=== PATIENT | female | born 1990 | race Caucasian/White ===

== ENCOUNTER 2016-12-06 03:54 | Emergency (ER) | payer SELFPAY ==
[2016-12-06 04:37] VITALS: BP 110/57; RESP 20; O2SAT 98
--- NOTE | 2016-12-06 05:29 | ED PDOC ---
HPI: Fever Fever Onset Was: 12/05/16 What Antipyretic Given Prior To Arrival: Unknown Recent Sick Contacts: No Have you had recent travel within the past 21 days to any of the following countries: [place], [place], [place] or [place]?: No Additional Comments: Pt reports bodyaches, fever, sore throat, headache and dry cough. Pt states she also had stomach ache. No medications for fever [employer]. Past Medical History Reviewed: Historical Data, Nursing Documentation, Vital Signs Vital Signs: Last Vital Signs Temp 102.3 F H 12/06/16 04:29 Pulse 110 H 12/06/16 04:29 Resp 20 12/06/16 04:29 BP 110/57 L 12/06/16 04:29 Pulse Ox 98 12/06/16 04:29 - Medical History PMH: No Chronic Diseases - Surgical History Surgical History: No Surg Hx - Family History Family History: States: Unknown Family Hx - Living Arrangements Living Arrangements: With Family - Social History Current smoker - smoking cessation education provided: No - Immunization History Hx Tetanus Toxoid Vaccination: No Hx Influenza Vaccination: No Hx Pneumococcal Vaccination: No - Home Medications Home Medications: Ambulatory Orders Medication Instructions Recorded Prednisone 50 mg PO DAILY #5 tab 10/06/14 Aspirin/Acetaminophen/Caffeine 1 each PO Q6H PRN #20 tablet 12/10/15 [Excedrin Migraine Caplet] Cyclobenzaprine [Cyclobenzaprine 10 mg PO Q8H #20 tab 12/10/15 HCl] Ibuprofen 600 mg PO Q6H PRN #20 tab 12/10/15 Nitrofurantoin Macrocrystals 100 mg PO BID #14 cap 01/15/16 [Macrobid] - Allergies Allergies/Adverse Reactions: Allergies Allergy/AdvReac Type Severity Reaction Status Date / Time No Known Allergies Allergy Verified 12/06/16 04:31 Review of Systems ROS Statement: Except As Marked, All Systems Reviewed And Found Negative Constitutional: Positive for: Fever, Malaise ENT: Positive for: Throat Pain Respiratory: Positive for: Cough Physical Exam - Reviewed Nursing Documentation Reviewed: Yes Vital Signs Reviewed: Yes - Physical Exam Appears: Positive for: Well, Non-toxic, No Acute Distress Head Exam: Positive for: ATRAUMATIC, NORMAL INSPECTION, NORMOCEPHALIC Skin: Positive for: Normal Color, Warm, DRY Eye Exam: Positive for: Normal appearance ENT: Positive for: Normal ENT Inspection, Pharyngeal Erythema Neck: Positive for: Normal, Painless ROM Cardiovascular/Chest: Positive for: Regular Rate, Rhythm Respiratory: Positive for: CNT, Normal Breath Sounds Gastrointestinal/Abdominal: Positive for: Normal Exam, Bowel Sounds, Soft Back: Positive for: Normal Inspection Extremity: Positive for: Normal ROM Neurologic/Psych: Positive for: Alert, Oriented - ECG O2 Sat by Pulse Oximetry: 98 Medical Decision Making Medical Decision Making: Endorsed pending influenza, strep and urine. Disposition - Clinical Impression Clinical Impression: Fever - Patient ED Disposition Is Patient to be Admitted: Transfer of Care - Disposition Disposition: Transfer of Care Disposition Time: 05:30 Condition: STABLE
[2016-12-06] MEDS ORDERED: Sodium Chloride 0.9% 1,000 ML IV STA (05:40)
--- NOTE | 2016-12-06 06:12 | ED PDOC ---
- Laboratory Results Result Diagrams: 12/06/16 07:50 12/06/16 07:50 - ECG O2 Sat by Pulse Oximetry: 98 (RA) Pulse Ox Interpretation: Normal Medical Decision Making Medical Decision Making: Receiving Sign Out: Patient signed out to me by VIRGIE Torres pending labs and re-evaluation. Scribe Attestation: Documented by Elodia Zhang acting as a scribe for Renan Wiley MD. Provider Attestation: All medical record entries made by the Scribe were at my direction and personally dictated by me. I have reviewed the chart and agree that the record accurately reflects my personal performance of the history, physical exam, medical decision making, and the department course for this patient. I have also personally directed, reviewed, and agree with the discharge instructions and disposition. Disposition - Clinical Impression Clinical Impression: Fever, UTI (urinary tract infection), URI (upper respiratory infection) - POA Present On Arrival: None - Disposition Referrals: [facility] [Outside] Disposition: Transfer of Care Disposition Time: 07:00 Condition: FAIR Additional Instructions: Follow up with your PCP in 2-3 days. Prescriptions: Nitrofurantoin Macrocrystals [Macrobid] 100 mg PO BID #14 cap Instructions: Urinary Tract Infection in Women (ED), Upper Respiratory Infection (ED) Patient Signed Over To: Jerome Bush Handoff Comments: labs and final dispo Progress Note - Review of Symptoms Events since last encounter: Time: 0638 Negative for Strep, Influenza Time: 0700 Pt to be signed out to Dr. Bush pending labs and final disposition.
[2016-12-06 06:40] VITALS: PULSE 99; TEMP 99.5
--- NOTE | 2016-12-06 07:12 | ED PDOC ---
- Laboratory Results Result Diagrams: 12/06/16 07:50 12/06/16 07:50 - ECG O2 Sat by Pulse Oximetry: 98 (RA) Pulse Ox Interpretation: Normal - Progress Re-evaluation Time: :02 Condition: Re-examined, Improved Medical Decision Making Medical Decision Making: Time: 7:00 --Patient is pending for blood work results, reassessment, and final disposition. Disposition Doctor Will See Patient In The: Office Counseled Patient/Family Regarding: Studies Performed, Diagnosis, Need For Followup - Clinical Impression Clinical Impression: Fever, UTI (urinary tract infection), Upper respiratory tract infection - POA Present On Arrival: None - Disposition Referrals: [facility] [Outside] Disposition: Routine/Home Disposition Time: 09:02 Condition: GOOD Additional Instructions: Follow up with your PCP in 2-3 days. Prescriptions: Nitrofurantoin Macrocrystals [Macrobid] 100 mg PO BID #14 cap Instructions: Urinary Tract Infection in Women (ED), Upper Respiratory Infection (ED)
[2016-12-06 08:04] LABS: HEMATOCRIT 34.8 % (34.0-47.0); MEAN CELL VOLUME 90.1 fl (81.0-99.0); MEAN CORPUSCULAR HEMOGLOBIN 30.5 pg (27.0-31.0); MEAN CORPUSCULAR HGB CONC 33.8 g/dL (33.0-37.0)
[2016-12-06 08:19] LABS: ALB/GLOB RATIO 1.1 (1.0-2.1); ALKALINE PHOSPHATASE 68 U/L (38-126); ALT/SGPT 35 U/L (9-52); AST/SGOT 27 U/L (14-36); BILIRUBIN,TOTAL 0.3 mg/dl (0.2-1.3); BLOOD UREA NITROGEN 10 mg/dl (7-17); CALCIUM 8.6 mg/dL (8.4-10.2); CARBON DIOXIDE 19 mmol/L (22-30); CHLORIDE 108 mmol/L (98-107); GFR AFRICAN-AMERICAN > 60; GLUCOSE,RANDOM 136 mg/dL (65-105); POTASSIUM 3.8 MMOL/L (3.6-5.0); SODIUM 140 mmol/l (132-148)
[2016-12-06 08:26] LABS: RBC URINE < 1 /hpf (0-3); URINE BACTERIA RARE (<OCC); URINE BILIRUBIN NEGATIVE (NEGATIVE); URINE BLOOD MODERATE (NEGATIVE); URINE COLOR STRAW (YELLOW); URINE GLUCOSE (UA) NEG (Normal); URINE KETONE TRACE mg/dL (NEGATIVE); URINE LEUKOCYTE ESTERASE MOD Leu/uL (Negative); URINE PROTEIN NEGATIVE (NEGATIVE); URINE UROBILINOGEN 0.2-1.0 mg/dL (0.2-1.0); WBC URINE 2 /hpf (0-5)
== END 2016-12-06 09:17 | disposition home or self-care (01) ==
LOC: H.ER 03:54
DX: N39.0 Urinary tract infection, site not specified (principal); J02.9 Acute pharyngitis, unspecified; R51 Headache; Z79.82 Long term (current) use of aspirin; J06.9 Acute upper respiratory infection, unspecified; R05 Cough
CPT/HCPCS: 80053; 81003; 81025; 85027; 87070; 87086; 87430; 87804; 99283; J7040

== ENCOUNTER 2017-05-07 18:23 | Emergency (ER) | payer OTHER ==
[2017-05-07 18:56] VITALS: RESP 16; TEMP 98.6
[2017-05-07] MEDS ORDERED: Sodium Chloride 0.9% 1,000 ML IV STA (19:28)
[2017-05-07] MEDS ORDERED: Iohexol 300 100 ML IJ ONE (20:09)
[2017-05-07] MEDS ORDERED: Sodium Chloride 0.9% 50 ML IV ONE (20:09)
--- NOTE | 2017-05-07 20:17 | ED PDOC ---
HPI: Abdomen Time Seen by Provider: 05/07/17 19:09 Chief Complaint (Nursing): Abdominal Pain Chief Complaint (Provider): Abdominal Pain History Per: Patient History/Exam Limitations: no limitations Outside of [place] travel?: No Current Symptoms Are (Timing): Still Present Additional Complaint(s): Cynthia Vargas, a 26 year old female, presents to the ED complaining of 3 days of constant abdominal pain. The patient states that she was sent to the ED from urgent care for further evaluation. Patient has a subjective fever. She reports that she has not taking any medication for pain. The patient she also has noted some intermittent dysuria. Denies hematuria, nausea, vomiting and diarrhea. Past Medical History Reviewed: Historical Data, Nursing Documentation, Vital Signs Vital Signs: Last Vital Signs Temp 98.6 F 05/07/17 18:53 Pulse 70 05/07/17 23:15 Resp 16 05/07/17 23:15 BP 116/74 05/07/17 23:15 Pulse Ox 100 05/07/17 23:15 - Medical History PMH: No Chronic Diseases - Surgical History Other surgeries: Cosmetic Surgeries - Family History Family History: States: Unknown Family Hx - Immunization History Hx Tetanus Toxoid Vaccination: No Hx Influenza Vaccination: No Hx Pneumococcal Vaccination: No - Home Medications Home Medications: Ambulatory Orders Medication Instructions Recorded Prednisone 50 mg PO DAILY #5 tab 10/06/14 Aspirin/Acetaminophen/Caffeine 1 each PO Q6H PRN #20 tablet 12/10/15 [Excedrin Migraine Caplet] Cyclobenzaprine [Cyclobenzaprine 10 mg PO Q8H #20 tab 12/10/15 HCl] Ibuprofen 600 mg PO Q6H PRN #20 tab 12/10/15 Nitrofurantoin Macrocrystals 100 mg PO BID #14 cap 01/15/16 [Macrobid] Nitrofurantoin Macrocrystals 100 mg PO BID #14 cap 12/06/16 [Macrobid] Ibuprofen [Motrin] 600 mg PO Q6H PRN #20 tab 05/07/17 Nitrofurantoin Macrocrystals 100 mg PO BID #14 cap 05/07/17 [Macrobid] - Allergies Allergies/Adverse Reactions: Allergies Allergy/AdvReac Type Severity Reaction Status Date / Time No Known Allergies Allergy Verified 05/07/17 19:30 Review of Systems ROS Statement: Except As Marked, All Systems Reviewed And Found Negative Constitutional: Positive for: Fever (subjective fever) Gastrointestinal: Positive for: Abdominal Pain, Diarrhea. Negative for: Nausea , Vomiting, Constipation Genitourinary Female: Positive for: Dysuria. Negative for: Hematuria Physical Exam - Reviewed Nursing Documentation Reviewed: Yes Vital Signs Reviewed: Yes - Physical Exam Appears: Positive for: Non-toxic, No Acute Distress Head Exam: Positive for: ATRAUMATIC, NORMAL INSPECTION, NORMOCEPHALIC Skin: Positive for: Normal Color, Warm, Dry. Negative for: Rash Eye Exam: Positive for: Normal appearance, EOMI, PERRL. Negative for: Nystagmus ENT: Positive for: Normal ENT Inspection. Negative for: Nasal Congestion, Tonsillar Exudate Neck: Positive for: Normal, Painless ROM, Supple Cardiovascular/Chest: Positive for: Regular Rate, Rhythm, Chest Non Tender. Negative for: Tachycardia Respiratory: Positive for: Normal Breath Sounds. Negative for: Rales, Rhonchi, Wheezing Gastrointestinal/Abdominal: Positive for: Bowel Sounds, Soft, Tenderness (right mid abdominal tenderness; LLQ tenderness.). Negative for: Mass, Guarding, Rebound Back: Positive for: Normal Inspection. Negative for: L CVA Tenderness, R CVA Tenderness Extremity: Positive for: Normal ROM. Negative for: Tenderness, Pedal Edema, Deformity, Swelling Neurologic/Psych: Positive for: Alert, Oriented, Gait - Laboratory Results Result Diagrams: 05/07/17 20:13 05/07/17 20:13 - ECG O2 Sat by Pulse Oximetry: 99 (RA) Pulse Ox Interpretation: Normal - CT Scan/US CT abd/pelvis Other Rad Studies (CT/US): Radiology Report Reviewed (Right ovarian cyst. Normal appendix.) Pelvic ultrasound Other Rad Studies (CT/US): Radiology Report Reviewed (Simple cyst within the right ovary. Trace free fluid within the cul-de-sac. Otherwise, unremarkable sonographic evaluation of the pelvis, as detailed above. ) Medical Decision Making Medical Decision Makin Initial Impression: Appendicitis vs Ovarian Cyst vs Ovarian torsion Initial Plan: * CT ABD&PELV IV Contrast Only * CMP * Upreg * Udip * CBC * Morphine 2mg IV * NS 1000mls IV 1000mls/hr * Urinalysis * US Pelvis/transvaginal * Reevaluation Scribe Attestation Documented by Gaby Gavin acting as a scribe for Brent Mahmood MD. Provider Attestation All medical record entries made by the Scribe were at my direction and personally dictated by me. I have reviewed the chart and agree that the record accurately reflects my personal performance of the history, physical exam, medical decision making, and the department course for this patient. I have also personally directed, reviewed, and agree with the discharge instructions and disposition. Disposition - Clinical Impression Clinical Impression: Ovarian cyst, UTI (urinary tract infection) - Patient ED Disposition Is Patient to be Admitted: No - Disposition Referrals: [facility] [Outside] Disposition: Routine/Home Disposition Time: 22:03 Condition: STABLE Prescriptions: Ibuprofen [Motrin] 600 mg PO Q6H PRN #20 tab PRN Reason: Pain, Moderate (4-7) Nitrofurantoin Macrocrystals [Macrobid] 100 mg PO BID #14 cap Instructions: Ovarian Cyst (ED), Urinary Tract Infection in Women (ED) Forms: [employer] (Palauan) Print Language: AFGHAN
[2017-05-07 20:20] LABS: BASO % 0.4 % (0.0-2.0); EOS # 0.1 K/uL (0.0-0.7); EOS % 0.6 % (0.0-4.0); HEMATOCRIT 38.9 % (34.0-47.0); LYMPH # 2.2 K/uL (1.0-4.3); LYMPH % 19.4 % (20.0-40.0); MEAN CELL VOLUME 89.9 fl (81.0-99.0); MEAN CORPUSCULAR HGB CONC 33.4 g/dL (33.0-37.0); MEAN PLATELET VOLUME 8.6 fl (7.2-11.7); MONO # 0.9 K/uL (0.0-0.8); MONO % 8.1 % (0.0-10.0); NEUT # 8.1 K/uL (1.8-7.0); NEUT % 71.5 % (50.0-75.0); NRBC % 0.3 % (0.0-0.0); RED CELL DISTRIBUTION WIDTH 13.4 % (11.5-14.5); WHITE BLOOD COUNT 11.3 K/uL (4.8-10.8)
[2017-05-07 20:25] LABS: RBC URINE 11 /hpf (0-3); URINE BACTERIA MANY (<OCC); URINE BILIRUBIN NEGATIVE (NEGATIVE); URINE BLOOD MODERATE (NEGATIVE); URINE COLOR YELLOW (YELLOW); URINE GLUCOSE (UA) NEG (Normal); URINE KETONE 80 mg/dL (NEGATIVE); URINE LEUKOCYTE ESTERASE SMALL Leu/uL (Negative); URINE PROTEIN 30 mg/dL (NEGATIVE); URINE UROBILINOGEN 0.2-1.0 mg/dL (0.2-1.0)
[2017-05-07 20:27] LABS: WBC URINE 20 /hpf (0-5)
[2017-05-07 20:35] LABS: ALB/GLOB RATIO 1.3 (1.0-2.1); ALKALINE PHOSPHATASE 68 U/L (38-126); ALT/SGPT 31 U/L (9-52); AST/SGOT 36 U/L (14-36); BILIRUBIN,TOTAL 0.9 mg/dl (0.2-1.3); BLOOD UREA NITROGEN 15 mg/dl (7-17); CALCIUM 9.8 mg/dL (8.4-10.2); CARBON DIOXIDE 21 mmol/L (22-30); CHLORIDE 103 mmol/L (98-107); GFR AFRICAN-AMERICAN > 60; GLUCOSE,RANDOM 83 mg/dL (65-105); POTASSIUM 4.3 MMOL/L (3.6-5.0); SODIUM 138 mmol/l (132-148); TOTAL PROTEIN 8.4 G/DL (6.3-8.2)
--- NOTE | 2017-05-07 21:52 | US ---
EXAM: US Pelvis, transabdominal and Transvaginal CLINICAL HISTORY: 26 years old, female; Pain; Pelvic pain; Additional info: Llq pain TECHNIQUE: Real-time transabdominal and transvaginal pelvic ultrasound (complete) with image documentation. Transvaginal imaging was used for better evaluation of the endometrium and adnexa. COMPARISON: No relevant prior studies available. FINDINGS: Uterus/cervix: Unremarkable in echogenicity and size measuring 9.1 x 4.1 x 4.8 cm. Normal endometrial stripe thickness, measuring 7 mm. No myometrial mass. Right ovary: Increased in size measuring 3.5 x 3.2 x 3.4 cm. An anechoic focus is identified within the right ovary measuring 2.4 cm in greatest dimension. No mass. Normal blood flow. Left ovary: Unremarkable in echogenicity and size measuring 2.8 x 1.2 x 2.0 cm. No mass. Normal blood flow. Free fluid: Free fluid is identified within the cul-de-sac. IMPRESSION: Simple cyst within the right ovary. Trace free fluid within the cul-de-sac Otherwise, unremarkable sonographic evaluation of the pelvis, as detailed above.
--- NOTE | 2017-05-07 21:59 | CT ---
EXAM: CT Abdomen and Pelvis With Intravenous Contrast CLINICAL HISTORY: 26 years old, female; Pain; Abdominal pain; Localized; Right upper quadrant (ruq); Prior surgery; Surgery date: 6+ months; Surgery type: Pt. States: When she was 6 yrs old she had an umbilical hernia; Additional info: Rlq pain TECHNIQUE: Axial computed tomography images of the abdomen and pelvis with intravenous contrast. All CT scans at this facility use one or more dose reduction techniques, viz.: automated exposure control; ma/kV adjustment per patient size (including targeted exams where dose is matched to indication; i.e. head); or iterative reconstruction technique. Coronal and sagittal reformatted images were created and reviewed. CONTRAST: 90 mL of [id number] administered intravenously. COMPARISON: No relevant prior studies available. FINDINGS: Lower thorax: The bilateral lung bases are clear. ABDOMEN: Liver: No acute findings. Gallbladder and bile ducts: The gallbladder is minimally distended, without calcified stones. No significant intra- or extrahepatic biliary ductal dilation. Pancreas: Enhances homogeneously. No ductal dilation. No discrete mass. Spleen: No acute findings. Adrenals: No acute findings. Kidneys and ureters: No acute findings. No discrete hydronephrosis or renal calculi. No discrete solid mass. PELVIS: Bladder: The bladder is moderately distended, with subsequent prominence of the bilateral ureters. Reproductive: Right adnexal cyst measuring 2.3 cm in greatest dimension. Adjacent free fluid, extending into the deep pelvis. Appendix: The air filled appendix is of normal caliber (series 3, image 101; series 601, image 40). ABDOMEN and PELVIS: Stomach and bowel: No obstruction. No mucosal thickening. Peritoneum: As above. Lymph nodes: No pathologically enlarged lymph nodes. Vasculature: Unremarkable. Bones: No acute fracture. IMPRESSION: Right ovarian cyst. Normal appendix.
[2017-05-07] MEDS ORDERED: cefTRIAXone (Rocephin) 1 gm Inj ONE (22:07)
[2017-05-07 23:47] VITALS: BP 116/74; PULSE 70
[2017-05-08 16:57] VITALS: O2SAT 99
== END 2017-05-07 23:15 | disposition home or self-care (01) ==
LOC: H.ER 18:23
DX: N39.0 Urinary tract infection, site not specified (principal); N83.201 Unspecified ovarian cyst, right side
CPT/HCPCS: 74177; 76830; 76856; 80053; 81003; 81025; 85025; 96361; 96365; 96375; 99283; J0696; J7040; Q9967